=== PATIENT | female | born 1975 | race Caucasian/White ===

== ENCOUNTER 2022-04-09 | Outpatient (CLI) | payer MEDICAID, SELFPAY | END 2022-04-09 23:00 | disposition home or self-care (01) | LOC: RAD 04-22 21:32 | PROVIDERS: Visit Provider Physician Assistant | DX: M25.562 Pain in left knee (principal); M17.11 Unilateral primary osteoarthritis, right knee; M25.561 Pain in right knee | CPT/HCPCS: 73560; 73565; 99203 ==

== ENCOUNTER 2022-05-10 09:01 | Outpatient (CLI) | payer MEDICAID, SELFPAY ==
--- NOTE | 2022-05-10 09:00 | CT_ITS ---
WS: [id number] CT RIGHT knee, noncontrast HISTORY: pre op planning TECHNIQUE: Protocol for [facility] total knee replacement has been obtained. This includes axial imaging th rough the same side RIGHT hip, RIGHT knee and RIGHT ankle. DLP: 951.92 mGy.cm COMPARISON: None available. Very mild narrowing of the hip joint and knee joint. Slightly greater narrowing involving the medial compartment of the knee. No destructive bone lesions. Negative appearance RIGHT ankle. CT/CT knee RT [facility] IMPRESSION: CT imaging provided for [facility] robotic total knee replacement.
== END 2022-05-10 09:02 | disposition home or self-care (01) ==
LOC: RAD 09:06
PROVIDERS: Visit Provider Orthopaedic Surgery
DX: Z01.818 Encounter for other preprocedural examination (principal)
CPT/HCPCS: 73700

== ENCOUNTER 2022-05-20 13:21 | Observation (INO) | payer MEDICAID, SELFPAY ==
--- NOTE | 2022-05-10 10:13 | ANES.PREANE2 ---
Pre-Anesthetic Assessment Height/Weight: Height 1.63 m Weight 136.078 kg Operation Date: 05/20/22 09:55 Proposed Procedures p Juan David Robot Total Knee Arthroplasty 32672,M17.11(Right) - Ashu Gagnon MD Familial anesthetic complications: NOne Social Tobacco and No alcohol Exam alert, oriented x 3, clear to auscultation bilaterally and regular rate & rhythm Airway Mallampati: Class IV Dentition: other (no teeth) Comments: Comments: large neck circumference Pulmonary Asthma CV/HEM None reported None reported Hepatic None reported GI None reported Metabolic Morbid Obesity Musc/skel Osteoarthritis/DJD Neuropsych None reported Anesthetic Plan ASA status: 2 Anesthesia: MAC and Regional (specify below) Other: spinal + adductor block Medications/Allergies Home Medications Medication Instructions Recorded Confirmed Last Taken Type Calcium 600 + D(3) 1 tab PO DAILY 05/10/22 05/10/22 05/09/22 History Elderberry 1 tab PO DAILY 05/10/22 05/10/22 05/10/22 History albuterol sulfate 2.5 mg/3 mL 2.5 mg inhalation DAILY 05/10/22 05/10/22 05/03/22 History (0.083 %) solution for nebulization [id number]-hkts-ggczm-oreg-capryl 1 tab PO DAILY 05/10/22 05/10/22 05/09/22 History Allergies Allergy/AdvReac Type Severity Reaction Status Date / Time codeine Allergy ALGY-Hives Verified 05/10/22 09:51 Penicillins Allergy stomach Verified 04/09/22 09:11 asprin Allergy Intermediate stomach Uncoded 04/09/22 09:11 Data Anesthesia Cardiac Studies: No Data to Display
[2022-05-20] VITALS (18 sets, daily range): BP systolic 124–171; BP diastolic 72–113; PULSE 67–112; RESP 15–19; TEMP 36.1–36.7; O2SAT 91–99
[2022-05-20] MEDS: sodium chloride 0.9% 1,000 ML 30 ML IV (08:13)
[2022-05-20] MEDS: gabapentin 300 mg Capsule PO ×2 (08:14→18:16)
[2022-05-20] MEDS: CELEcoxib 200 mg Capsule 400 MG PO (08:14)
[2022-05-20] MEDS: acetaminophen 500 mg Tablet 1000 MG PO ×2 (08:14→16:19)
[2022-05-20] MEDS: oxyCODONE 20 mg ER (12 HR) Tablet PO (08:15)
--- NOTE | 2022-05-20 09:04 | P.ANESUD_ITS ---
Pre-Anesthetic Update Pre-Anesthetic Assessment: Date of Surgery/Procedure: 05/20/22 Preop Ese gnosis: Osteoarthritis right knee Proposed Procedure: Operation Date: 05/20/22 09:55 Proposed Procedures p Juan David Robot Total Knee Arthroplasty 86219,M17.11(Right) - Ashu Gagnon MD Any changes to Pre-Anesthetic Assessment?: No Last Intake: Intake Last Liquid Date 05/19/22 Last Liquid Time 23:55 Last Solid Date 05/19/22 Last Solid Time 19:00 Vitals: Temperature 97.7 F 05/20/22 07:50 Temperature Source Temporal Artery S can 05/20/22 07:50 Pulse Rate 80 05/20/22 08:20 Respiratory Rate 16 05/20/22 08:20 Blood Pressure 143/77 05/20/22 08:20 Blood Pressure Florence n 99 05/20/22 08:20 Pulse Oximetry 96 05/20/22 08:20 Oxygen Delivery Me thod 05/20/22 08:20 Exam: Pre-Anes Outpt Exam: alert, oriented x 3, clear to auscultation bilaterally and regular rate & rhythm Cardiac Studies: No Data to Display
--- NOTE | 2022-05-20 09:04 | ANES.PROC ---
Anesthesia Procedures Procedure/Date: 05/20/22 Nerve Block ^: Nerve Block 1: Main Anesthesia: spinal anesthesia block Time Out Performed: Yes Consent: requested by attending/covering physician, from patient, from other, risks and benefits reviewed and patient agrees to proceed Anesthesia monitors applied: pulse oximetry, EKG, BP cuff and oxygen Nerve block position: supine Anesthetic Used: ropivicaine 0.5% (30 ml) and with decadron (4 mg) Ultrasound used to: recognize landmarks and visualize and ID femerol nerve Nerve Stimulator Used?: No Interscalene/Femoral BLK: 4 stimuplex 21 g needle used for position and inplane approach, visualize local anesthetic spread and no vascular puncture identified Patient Tolerated Procedure: well Complications: none
--- NOTE | 2022-05-20 09:27 | W.PM.OPSFHP ---
Same Day Surgery H&P Indication for Procedure/HPI DATE OF PROCEDURE: May 20, 2022 CHIEF COMPLAINT/INDICATIONFOR SURGICAL PROCEDURE: Osteoarthritis right knee PREOP DIAGNOSIS: Osteoarthritis right knee PLANNED PROCEDURE: Operation Date: 05/20/22 09:55 Proposed Procedures p Juan David Robot Total Knee Arthroplasty 55224,M17.11(Right) - Ashu Gagnon MD Ms. Singh states that she has had pain to her knee for 5 years now. She states that 5 years ago she dropped a TV on her knee and had immediate pain. She states that she has had 2 knee scopes to her right knee.? The first helped somewhat.? The last with relief for about 3 months. She states that her pain is reproduced by walking and standing. She states that she uses ice and heat with relief. She states that she has tried anti-inflammatory prescribed by her primary care doctor without relief.? She states that she has had 4 injections in the past by Dr. Felix in [place]. She states that her first two injections gave her relief for 2 months and she states the last two injections made her pain worse. She states that she tried physical therapy without relief. She states that her pain will wake her up at night.? She states she is unable to walk a block.? She can barely get to the back of a [employer] and back.? She depends on a scooter and cart to get around through the grocery store.? She has tried to lose weight but it is impossible for her to exercise with her knee and weight loss has been exceedingly difficult. Medications/Allergies* Home Medications Medication Instructions Recorded Confirmed Type Calcium 600 + D(3) 1 tab PO DAILY 05/10/22 05/10/22 History Elderberry 1 tab PO DAILY 05/10/22 05/10/22 History albuterol sulfate 2.5 mg/3 mL 2.5 mg inhalation DAILY 05/10/22 05/10/22 History (0.083 %) solution for nebulization loxoasr-dkms-jwxvh-oreg-capryl 1 tab PO DAILY 05/10/22 05/10/22 History Allergies/Adverse Reactions Allergy/AdvReac Type Severity Reaction Status Date / Time codeine Allergy ALGY-Hives Verified 05/10/22 09:51 Penicillins Allergy ALGY-Anaphy Verified 05/20/22 07:47 laxis asprin Allergy Intermediate stomach Uncoded 04/09/22 09:11 Current Medications: Generic Name Dose Route Start Last Admin Trade Name Ramírez PRN Reason Stop Dose Admin Sodium Chloride 1,000 mls @ 30 mls/hr 05/20/22 07:45 05/20/22 08:13 Sodium Chloride 0.9% IV 05/21/22 07:44 30 mls/hr .Q24H JANUARY Administration Pertinent Exam Findings alert, oriented x 3 and clear to auscultation bilaterally Tender medial joint line No palpable effusion RANGE OF MOTION: ? ? ? EXAMINED LIMB ? Extention: Full ? Flexion: 100 degrees Patella tracks well Cruciate ligaments are stable Recommendations Surgery/Procedure today Coding Level of Care Code Acute Manager Portable for Emely Eli
--- NOTE | 2022-05-20 09:28 | SUR.PREOP ---
09:25 ROM AND RIGHT PEDAL PULSE PRESENT.
[2022-05-20] MEDS: ceFAZolin 2,000 MG in sodium chloride 0.9% (plus) 50 ML 100 MG IV ×2 (10:10→16:19)
[2022-05-20] MEDS: tranexamic acid 1,000 mg/10mL SDV 1000 MG IV (10:30)
[2022-05-20] MEDS: EPINEPHrine 1 mg/mL INJ XX (11:41)
[2022-05-20] MEDS: ketorolac 30 mg/mL INJ XX (11:41)
[2022-05-20] MEDS: tranexamic acid 1,000 mg/10mL SDV 1000 MG XX (11:41)
--- NOTE | 2022-05-20 12:46 | XR_ITS ---
WS: [id number] RIGHT KNEE 2 VIEWS AP and cross table lateral imaging is submitted. HISTORY: Right total knee arthroplasty. COMPARISON: 05/10/2022 Total knee replacement prosthetic devices are in good position and alignment. Normal position of the patella. There are normal postoperative changes surrounding the soft tissues consistent with air, blo od and edema. No complications are evident. XR/XR knee RT 1-2V 21754 IMPRESSION: Satisfactory appearance of the recent RIGHT knee arthroplasty.
--- NOTE | 2022-05-20 12:47 | P.OP_ITS ---
Operative Report Date of procedure: May 20, 2022 Pre-op diagnosis: Preop Diagnosis Osteoarthritis right knee Post-op diagnosis: same Post-op diagnosis: Same Post-op findings: Same Procedure done: Right total knee arthroplasty Implants: Jose Triathalon total knee arthroplasty components were used includin) Size 3 triathalon cruciate retaining femoral component 2) Size 4 Tritanium tibial component 3) Size 4/9 mm thickness CS tibial bearing insert Pathology: none sent Surgeon: Ashu Gagnon Brick Setter Operator: Sandor Mckeon Brick Setter Operator: The nurse practitioner the nurse practitioner assisted with critical portions of the case including positioning, draping, exposure, component implantation, closure and dressing application and is present through the entirety of the case. Anesthesia: Nerve Block (Spinal, adductor canal block) Estimated blood loss (mL): 250 Findings: The patient eburnated bone over the medial femoral condyle and medial tibial plateau with varus malalignment there was minimal patellar intra-articular chondromalacia Condition: stable Disposition: PACU Procedure: The patient was taken to the operating room. Patient was given 1 g of tranexamic acid and 2 g of Ancef. The above anesthesia provided by the anesthesia service. A timeout was performed. The patient was prepped and draped in the usual fashion with the lower extremity exposed. A anterior incision was made, midline, from a point proximal to the patella to the distal tibial tubercle. The knee was entered through a medial parapatellar approach. The patella could be displaced laterally and the knee flexed. The patellar fat pad was resected to provide better visibility. Retractors were placed medially and laterally adjacent to the tibial plateau. At a point approximately 8 cm above the patella, 2 small incisions were made with a scalpel blade and 2 long threaded pins were placed into the anterior medial femur engaging both cortices. The femoral arrays were placed over these pins and secured. At a point 8 cm distal to the tibial tubercle. 2 shorter bicortical threaded pins were placed across the anterior medial tibia and the tibial arrays placed. A checkpoint was made just proximal and medial to the medial femoral condyle and just medial to the tibial plateau. All osteophytes were removed from the medial femoral condyle medial tibial plateau. small osteotomes were placed in the joint in both flexion and extension to determine ligamentous laxity. The tibia was cut into degrees additional varus to balance the knee.. The HALINA robot was then introduced to the field and the femur and tibia cut in accordance with our plan. he [employer] Fastseal was then used to provide hemostasis, particularly about the posterior capsule. A trial with the above components provided excellent stability and full range of motion. The femur was then prepared for the femoral pegs of the component in the tibia for the tibial component. The femur and tibia were then press-fit into place. An osteotome was used to remove the lateral 8 mm of the patella to minimize chances of later impingement. A neurectomy was accomplished circumferentially about the patella with electrocautery and lateral osteophytes removed. Surfaces were cleaned with a gentamicin solution. The femur and tibia were then press-fit into place. The posterior capsule and collateral ligaments were then injected with a solution of 100 mL of 0.2% ropivacaine, 1 mL of a 1:1000 epinephrine solution, 30 mg of Toradol, and 1 g of tranexamic acid. Final polyethylene component was then snapped into place into the tibia. The extensor retinaculum was closed with a running 1 Stratafix interrupted 1 Ethibond. The subcutaneous tissues were closed with 2-0 Vicryl and the skin was closed with a running 4-0 Stratafix. The wound was covered with a Dermabond Prineo dressing. It was covered with 4xrs and a compressive Tubigauze was applied. The patient was taken to recovery room in stable condition.
[2022-05-20] MEDS: oxyCODONE 5 mg IR Tab/Cap PO ×2 (13:55→19:30)
[2022-05-20] MEDS: metoclopramide 5 mg/mL SDV 2 mL 10 MG IV (14:03)
--- NOTE | 2022-05-20 15:03 | ANE.PACU2 ---
Inpatient post-anesthesia follow up: Airway intact: Yes Vital signs: Temperature 98.0 F Pulse Rate 112 Respiratory Rate 18 Blood Pressure 155/90 Pulse Oximetry 91 Oxygen Delivery Me thod Room Air Oxygen Flow Rate 6 Fraction of Inspir ed Oxygen Hydration adequate: Yes Nausea and vomiting: No Pain level: 1 Mental status: Baseline
[2022-05-20] MEDS: CELEcoxib 200 mg Capsule PO (20:31)
[2022-05-21] MEDS: ceFAZolin 2,000 MG in sodium chloride 0.9% (plus) 50 ML 100 MG IV (00:49)
[2022-05-21] MEDS: sodium chloride 0.9% 1,000 ML 100 ML IV (00:50)
[2022-05-21] MEDS: acetaminophen 500 mg Tablet 1000 MG PO ×2 (00:50→08:58)
[2022-05-21 01:03] VITALS: BP 142/70; PULSE 73; RESP 18; TEMP 36.7; O2SAT 96
--- NOTE | 2022-05-21 04:07 | PC.NURSE ---
Patient called this nurse into the room and said that she wants to go outside to smoke that she has been a good girl this whole time and has not asked once but I need to go outside and smoke. I told her that she had a fresh surgery from yesterday and that she still has an IV in her arm as she is getting antibiotics and that she would not be able to go outside and smoke as that is against her orders and hospital policy. She said that I just needed to turn my head and pretend I did not know what she was doing. I will just say I am going for a walk. I told her I could not do that. I offered to call the doctor for a patch or for nicotine gum anything we could do to help and she said No I do not want that I smoke one pack a day my smokes and I am not going to be stopping. Adele sheehan was called to come talk to the patient as charge nurse Julita was in another room and also educated the patient on the importance of following doctors orders after surgery and on different measures we could take to help like a nicotine patch. Patient was able to be calmed down and agreed to get back in bed but stated she just wants her antibiotics so she can leave and go home.
[2022-05-21 04:14] VITALS: RESP 18; O2SAT 97
[2022-05-21] MEDS: oxyCODONE 5 mg IR Tab/Cap PO ×2 (04:14→08:57)
[2022-05-21 04:16] VITALS: BP 133/69; PULSE 83; RESP 18; TEMP 36.8; O2SAT 97
[2022-05-21 04:20] LABS: Hemoglobin 13.6 g/dL (11.5-15.3)
--- NOTE | 2022-05-21 08:04 | PM.DCS ---
Discharge Providers Date of Admission: 05/20/22 13:21 Date of Discharge: May 21, 2022 Attending Provider at Admission: Ashu Henderson MD Attending Provider at Discharge: Ashu Henderson MD Primary Care Provider: Elda Casarez Diagnoses at Discharge Discharge Diagnosis (1) Obesity: Status: Acute (2) Osteoarthritis of right knee: Status: Resolved (3) Status post right knee replacement: Status: Acute Reason for Visit Reason for Visit: M17.11 UNilateral Primary Osteoarthritis, right kn Hospital Course Hospital Course The patient tolerated surgery well. They remained hemodynamically stable. They was begun on aspirin and [] for DVT prophylaxis. The patient was mobilized with therapy beginning the day of surgery and by the first postoperative day independent with the walker. As the pain was adequately controlled and they were fully mobile they were discharged home. Physical Exam Narrative: On the day of discharge the knee incision was clean. They had no drainage. There is minimal swelling in the thigh and knee and the calf. No distal neurovascular deficits were noted Discharge Data Studies Completed and Pending Completed Studies During Hospitalization Category Date Time Status XR knee RT 1-2V 79112 Routine Exams 05/20/22 12:46 Completed Radiology Impressions Knee X-Ray 05/20/22 12:46 IMPRESSION: Satisfactory appearance of the recent RIGHT knee arthroplasty. Laboratory Results Hgb 13.6 g/dL (11.5-15.3) 05/21/22 04:15 Vitals Last Vital Signs Temp 98.2 F 05/21/22 04:16 Pulse 83 05/21/22 04:16 Resp 18 05/21/22 04:16 BP 133/69 05/21/22 04:16 Pulse Ox 97 05/21/22 04:16 O2 Del Method 05/21/22 04:16 O2 Flow Rate 6 05/20/22 13:10 Discharge Plan Discharge Patient Disposition: Home Condition: Stable Prescriptions: New oxycodone 5 mg Tablet 5 mg PO Q4H PRN (Reason: Moderate Pain) 7 Days Qty: 40 0RF celecoxib 200 mg Capsule 200 mg PO Q12H 14 Days Qty: 28 0RF gabapentin 300 mg Capsule 300 mg PO BID 7 Days Qty: 14 0RF aspirin 325 mg Tablet,Delayed Release (Dr/Ec) 325 mg PO DAILY 30 Days Qty: 3 0RF Continued albuterol sulfate 2.5 mg /3 mL (0.083 %) solution for nebulization 2.5 mg inhalation DAILY Calcium 600 + D(3) 1 tab PO DAILY Elderberry 1 tab PO DAILY sntznlw-ksam-aodha-oreg-capryl 1 tab PO DAILY Discharge Orders: Discharge Order (Routine); Ordered 05/21/22 Ordered By: Ashu Henderson Referrals: Sandor Mckeon FNP [Physician Children'S Service Supervisor] - 05/24/22 10:30 am Discharge Diet: Advance as tolerated Discharge Activity: Limit activity as instructed Patient Instructions: Opioid Safety Activity Restrictions/Additional Instructions: Okay to shower Keep Tubigauze sleeve in place for swelling. Okay to remove for hygiene. Apply FirstIce up to 20 min/hr for pain and swelling Take Celebrex twice a day for the next 15 days for pain , discontinue other anti-inflammatories Take Neurontin twice a day for 7 days. Take Tylenol 500mg (2 tabs) as needed 3 times a day for mild pain take oxycodone for breakthrough pain. Exercises per physical therapy. May weight-bear as tolerated on total knee arthroplasty IF HAVE ANY PROBLEMS OR QUESTIONS CALL HOSPITAL SUSTAINABILITY COORDINATOR AT AND ASK TO HAVE DR. HENDERSON PAGED. Discharge Attestations Time Spent in Discharge Care*: other Quality Metrics Clinical Quality Measures [ No reported AMI, CVA or VTE this stay] Coding Level of Care Code Acute [facility] note Diagnoses Obesity E66.9 Osteoarthritis of right knee M17.11 Status post right knee replacement Z96.651
[2022-05-21 08:57] VITALS: RESP 18
[2022-05-21] MEDS: gabapentin 300 mg Capsule PO (08:59)
[2022-05-21] MEDS: CELEcoxib 200 mg Capsule PO (08:59)
[2022-05-21 12:45] VITALS: BP 119/53; PULSE 82; RESP 18; TEMP 36.9; O2SAT 96
== END 2022-05-21 12:45 | disposition home or self-care (01) ==
LOC: OBGYN 17:30
PROVIDERS: Admitting Provider Orthopaedic Surgery; PCP Physician Assistant; Visit Provider Orthopaedic Surgery
PROC: 8E0Y0CZ Robotic Assisted Procedure of Lower Extremity, Open Approach (ICD-10-PCS; CPT 27447; principal; 2022-05-20 09:35)
DX: M17.11 Unilateral primary osteoarthritis, right knee (principal); E66.01 Morbid (severe) obesity due to excess calories; Z68.43 Body mass index [BMI] 50.0-59.9, adult
CPT/HCPCS: 27447; 36415; 73560; 85018; 97110; 97116; 97161; 97165; C1776; G0378; J0171; J0690; J1100; J1580; J1885; J2001; J2250; J2270; J2405; J2704; J2765; J2795; J3010; J3490; J7030

== ENCOUNTER → 2022-07-03 10:37 | Outpatient (BNVA) | payer MEDICAID, SELFPAY | PROVIDERS: PCP Physician Assistant; Visit Provider Nurse Practitioner Family | DX: Z96.651 Presence of right artificial knee joint (principal); M54.9 Dorsalgia, unspecified; M54.30 Sciatica, unspecified side | CPT/HCPCS: 73560; 73565; 99213 ==

== ENCOUNTER → 2022-09-04 10:35 | Outpatient (BNVA) | payer MEDICAID, SELFPAY | PROVIDERS: PCP Physician Assistant; Visit Provider Nurse Practitioner Family | DX: M17.11 Unilateral primary osteoarthritis, right knee (principal); Z96.651 Presence of right artificial knee joint; Z47.89 Encounter for other orthopedic aftercare | CPT/HCPCS: 73560; 73565; 99213 ==

== ENCOUNTER → 2022-10-02 14:21 | Outpatient (BNVA) | payer MEDICAID, SELFPAY | PROVIDERS: PCP Physician Assistant; Visit Provider Nurse Practitioner Family | DX: Z96.651 Presence of right artificial knee joint (principal) | CPT/HCPCS: 73560; 73565; 99213 ==

== ENCOUNTER 2023-08-28 11:15 | Emergency (ER) | payer MEDICAID, SELFPAY ==
[2023-08-28 11:24] VITALS: BP 154/69; PULSE 88; RESP 18; TEMP 36.7; O2SAT 97; BMI 48.4
[2023-08-28 12:16] LABS: Basophils % 0.4 %; Eosinophils # 0.1 10^3/uL (0.0-0.8); Eosinophils % 1.1 %; Hematocrit 49.6 % (36-47); Lymphocytes # 2.6 10^3/uL (0.8-4.8); Lymphocytes % 24.5 %; Mean Corpuscular HGB Conc 32.5 g/dL (30-55); Mean Corpuscular Hemoglobin 30.9 pg (27-33); Mean Corpuscular Volume 95.2 fl (85-98); Monocytes # 0.7 10^3/uL (0.2-0.9); Monocytes % 6.2 %; Neutrophils # 7.05 10^3/uL (1.8-7.7); Neutrophils % 67.2 %; Nucleated Red Blood Cells % 0 %; Platelet Count 221 10^3/cmm (157-399); Red Blood Count 5.21 10^6/uL (3.85-5.65); Red Cell Distribution Width 12.1 % (12.1-15.1); White Blood Count 10.47 10^3/uL (3.29-11.43)
[2023-08-28 12:40] LABS: Alanine Aminotransferase 35 U/L (0-33); Albumin Level 4.1 g/dL (3.5-5.2); Alkaline Phosphatase 120 U/L (35-105); Anion Gap 18.1 (5-19); Aspartate Amino Transferase 36 U/L (0-32); Blood Urea Nitrogen 6 mg/dL (6-20); Carbon Dioxide 23 mmol/L (22-29); Chloride 104 mmol/L (98-107); Creatinine Clr Calc Pharmacy 180.4515; Globulin 3.3 g/dL (1.3-4.6); Glomerular Filtration Rate 131.1 mL/min (90-130); Glucose 92 mg/dL (65-115); Osmolality Calculated 289 mOsm/kg (285-295); Potassium 4.1 mmol/L (3.5-5.1); Sodium 141 mmol/L (136-145); Total Bilirubin 0.4 mg/dL (0.15-1.2); Total Protein 7.4 g/dL (6.6-8.7)
--- NOTE | 2023-08-28 13:19 | W.ED.RECABL ---
HPI - Recheck/Abnormal Lab/Rx General: Chief Complaint: Recheck/Abnormal Lab/Rx Stated Complaint: abnormal labs sent from dr Barrett Seen by Provider: 08/28/23 13:18 Source: patient Mode of arrival: ambulatory History of Present Illness: 48-year-old female presents emergency room complaining of abnormal labs. She was seen at [facility] in [place] and evidently lab work and 2 days ago. She was advised her lab work is abnormal and she needed to go to the nearest emergency room on arrival here states she generally does not feel good she is initially seen at the clinic because of a gastroenteritis type symptoms. Review of Systems Const: Denies: fever(s) or chills Card: Denies: chest pain Resp: Denies: dyspnea GI: Reports: nausea; Denies: abdominal pain or vomiting : Denies: dysuria, urinary frequency or urinary urgency Musc: Denies: neck pain or back pain Skin/Breast: Denies: rash Physical Exam Const: COMMON NORMALS: no acute distress GENERAL APPEARANCE: cooperative and comfortable ORIENTATION/CONSCIOUSNESS: Yes awake, Yes oriented to person, Yes oriented to place and Yes oriented to time HENMT: COMMON NORMALS: normocephalic, atraumatic and hearing grossly normal bilaterally HEAD & SCALP: normocephalic and atraumatic Resp: COMMON NORMALS: normal respiratory effort, No retractions, No use of accessory muscles and clear to auscultation bilaterally AUSCULTATION: clear to auscultation bilaterally Cardio: COMMON NORMALS: regular rate, regular rhythm and No murmurs present (Cardio) RATE: regular rate RHYTHM: regular rhythm GI: COMMON NORMALS: Soft to palpation and No hepatosplenomegaly present AUSCULTATION: Yes normoactive bowel sounds PALPATION: Yes Soft to palpation, No Tenderness to palpation present (GI), No Guarding due to palpation present (GI) and Yes No hepatosplenomegaly present Extremity: COMMON NORMALS: normal to inspection, capillary refill normal, no clubbing, cyanosis or edema, no calf tenderness and no pedal edema Neuro: SENSORIUM/ORIENTATION: Yes oriented to person, Yes oriented to place and Yes oriented to time Skin: COMMON NORMALS: no rashes or lesions noted GENERAL SKIN EXAM: no rashes or lesions noted Course Vital Signs: Vital signs: Vital Signs Temperature 98.1 F 08/28/23 11:24 Pulse Rate 89 03/07/24 14:14 Respiratory Rate 18 08/28/23 11:24 Blood Pressure 149/90 08/28/23 14:14 Pulse Oximetry 94 08/28/23 14:14 Oxygen Delivery Me thod Room Air 08/28/23 11:24 MDM - Recheck/Abnormal Lab/Rx Medical Decision Making Contacted the office where she was seen in [place] it is [facility] there. Was able to talk to one of the nurses 2 days ago which she was seen initiated white count of 14,000 carbon dioxide was 17 her AST ALT and alk phos were similar to what they are today. Today a repeat CMP and CBC does not show any significant abnormalities. Her white count is in the normal range her vital signs are stable. Patient states she still does not feel real well has a lot of myalgias she has not had any cough. Is not having any diarrhea not having any hematemesis coffee-ground emesis dysuria urgency. She states she does have antiemetics at home (ondansetron). Discharge the patient home is no emergent condition based on her current laboratory studies or her vital signs. She generally is not feeling well I suspect she has focal gastroenteritis or other viral infection because the lab abnormalities and her other symptoms he currently has. She should follow-up with the liver functions with her primary care doctor. Consider getting a tick panel but she says she has not had any tick bites recently and she previously has had a cholecystectomy. Medical Records I reviewed the patient's medical records. Lab Data I reviewed the patient's lab results. 08/28/23 11:50 08/28/23 11:50 Laboratory Results WBC 10.47 10^3/uL (3.29-11.43) 08/28/23 11:50 RBC 5.21 10^6/uL (3.85-5.65) 08/28/23 11:50 Hgb 16.10 g/dL (11.27-16.99) 08/28/23 11:50 Hct 49.6 % (36-47) H 08/28/23 11:50 MCV 95.2 fl (85-98) 08/28/23 11:50 MCH 30.9 pg (27-33) 08/28/23 11:50 MCHC 32.5 g/dL (30-55) 08/28/23 11:50 RDW 12.1 % (12.1-15.1) 08/28/23 11:50 Plt Count 221 10^3/cmm (157-399) 08/28/23 11:50 MPV 11.0 fL (7.4-10.4) H 08/28/23 11:50 Neut % (Auto) 67.2 % 08/28/23 11:50 Lymph % (Auto) 24.5 % 08/28/23 11:50 [place] % (Auto) 6.2 % 08/28/23 11:50 Eos % (Auto) 1.1 % 08/28/23 11:50 Baso % (Auto) 0.4 % 08/28/23 11:50 Neut # (Auto) 7.05 10^3/uL (1.8-7.7) 08/28/23 11:50 Lymph # (Auto) 2.6 10^3/uL (0.8-4.8) 08/28/23 11:50 [place] # (Auto) 0.7 10^3/uL (0.2-0.9) 08/28/23 11:50 Eos # (Auto) 0.1 10^3/uL (0.0-0.8) 08/28/23 11:50 Baso # (Auto) 0.0 10^3/uL (0.0-0.1) 08/28/23 11:50 Nucleated RBC % (auto) 0 % 08/28/23 11:50 Nucleated RBCs # 0.0 /100WBC 08/28/23 11:50 Sodium 141 mmol/L (136-145) 08/28/23 11:50 Potassium 4.1 mmol/L (3.5-5.1) 08/28/23 11:50 Chloride 104 mmol/L (98-107) 08/28/23 11:50 Carbon Dioxide 23 mmol/L (22-29) 08/28/23 11:50 Anion Gap 18.1 (5-19) 08/28/23 11:50 BUN 6 mg/dL (6-20) 08/28/23 11:50 Creatinine 0.5 mg/dL (0.5-0.9) 08/28/23 11:50 GFR Calculation 131.1 mL/min (90-130) H 08/28/23 11:50 Glucose 92 mg/dL (65-115) 08/28/23 11:50 Calculated Osmolality 289 mOsm/kg (285-295) 08/28/23 11:50 Calcium 9.0 mg/dL (8.5-10.5) 08/28/23 11:50 Total Bilirubin 0.4 mg/dL (0.15-1.2) 08/28/23 11:50 AST 36 U/L (0-32) H 08/28/23 11:50 ALT 35 U/L (0-33) H 08/28/23 11:50 Alkaline Phosphatase 120 U/L (35-105) H 08/28/23 11:50 Total Protein 7.4 g/dL (6.6-8.7) 08/28/23 11:50 Albumin 4.1 g/dL (3.5-5.2) 08/28/23 11:50 Globulin 3.3 g/dL (1.3-4.6) 08/28/23 11:50 No radiology studies performed this visit Discharge Plan Discharge Patient Disposition: Home Clinical Impression: Viral syndrome, Transaminitis Condition: Stable Prescriptions: No Action ondansetron 4 mg tablet,disintegrating 4 mg PO Q6H Qty: 14 0RF albuterol sulfate 2.5 mg /3 mL (0.083 %) solution for nebulization 2.5 mg inhalation DAILY Ventolin HFA 90 mcg/actuation Hfa Aerosol Inhaler 1 puff INHALATION QID PRN (Reason: Shortness Of Breath Or Wheezing) Calcium 500 + D (D3) 500 mg-3.125 mcg (125 unit) Tablet 1 tab PO DAILY turmeric 400 mg Capsule 400 mg PO DAILY elderberry fruit 350 mg Capsule 350 mg PO DAILY Daily Multi-Vitamin Tablet 1 tab PO DAILY Discharge Orders: Discharge ED (Routine); Ordered 08/28/23 Ordered By: Ishan Butler Referrals: Elda Casarez PA-C [Primary Care Provider] - Patient Instructions: Opioid Safety, Pain Management Activity Restrictions/Additional Instructions: Thank you for choosing [facility] for your healthcare needs today. Please realize this is an emergency room and that we are providing you with a medical screening exam and this may not be complete and all inclusive of all the testing and or work up that you may need to determine your ailment or severity of your illness. It is very important that you follow up as instructed or that you return to the Emergency Department should you have concerns or if your condition changes or worsens in any way. You are seen today for concerns of previously abnormal labs. Your white count has normalized as is your carbon dioxide. Your liver enzymes including AST ALT and alk phos are slightly elevated. You should follow-up these with your primary care doctor in the office and within the next month. If you have worsening or changing problems be seen sooner. Coding Level of Care Code ED Scraper Loader Operator for Emely Eli
[2023-08-28 14:14] VITALS: BP 149/90; PULSE 89; O2SAT 94
== END 2023-08-28 14:15 | disposition home or self-care (01) ==
PROVIDERS: Emergency Medicine; Emergency Provider Family Medicine; PCP Physician Assistant
DX: B34.9 Viral infection, unspecified (principal); R74.01 Elevation of levels of liver transaminase levels
CPT/HCPCS: 36415; 80053; 85025; 99283

== ENCOUNTER 2025-06-22 17:26 | Emergency (ER) | payer MEDICARE, MEDICAID, SELFPAY ==
--- OUTSIDE RECORDS SUMMARY | 2025-06-22 16:00 | XMS_ITS | Encounter Summary ---
Author Organization [facility] Address [address] [place] [address] Care Team Providers Care Steamer Operator Name Role Phone Macarena Rodriguez MD Primary Care Provider [phone]- [phone] Reason for Referral * Radiology Services (Routine) - Authorized Specialty Diagnoses / Procedures Referred By Nora kent Referred To Contact Radiology Diagnoses Screening mammogram, encounter for Procedures MAMMO 3D RADHA SCREEN BILAT W OR WO CAD CHG SCREENING MAMMOGRAPHY BI 2-VIEW BREAST INC CAD CHG SCREENING DIGITAL BREAST TOMOSYNTHESIS BI Josy Ocasio APRN [address] [place] [phone] Phone: tel: fax: [facility]amm[facility] [place] [address] [place] [address] Phone: tel: fax: Referral ID Status Reason Start Date Expiration Date Visits Requested Visits Authorized [id number] Authorized Performing Department to Schedule 07/23/2026 1 1 HEN RUNNER Reason for Visit * Reason Comments Fever Sx started on 06/15; diarrhea, vomiting, shortness of breath, abdominal pain temp up to 104.9; last fever this morning was 101 Encounter Details Date Type Department Care Team (Late Contact Info) Description 06/22/2025 4:00 PM KITCHEN RUNNER Office Visit [facility] [place] [address] [place] [phone] Josy Ocasio APRN [address] [place] [phone] Abdominal pain, acute, right lower quadrant (Primary Dx); Nausea and vomiting, unspecified vomiting type; Fever, unspecified fever cause; Acute diarrhea; Influenza vaccination declined; Screening mammogram, encounter for Social History Tobacco Use Types Packs/Day Years Used Date Smoking Tobacco: Every Day Cigarettes Alcohol Use Standard Drinks/Week Comments Not Currently 0 (1 standard drink = 0.6 oz pur e alcohol) Feeling Safe Answer Date Recorded Are you in a relationship wi th someone who hurts you emotionally and/or physically? No 01/05/2025 Comments No Sex and Gender Information Value Date Recorded Sex Assigned at Not on file Legal Sex Female 9:14 PM KITCHEN RUNNER Gender Identity Not on file Sexual Orientation Not on file documented as of this encounter Last Filed Vital Signs Vital Sign Reading Time Taken Comments Blood Pressure 143/94 06/22/2025 3:21 PM KITCHEN RUNNER Pulse 94 06/22/2025 3:21 PM KITCHEN RUNNER Temperature 36.6 C (97.9 F) 06/22/2025 3:21 PM KITCHEN RUNNER Respiratory Rate - - Oxygen Saturation 96% 06/22/2025 3:21 PM KITCHEN RUNNER Inhaled Oxygen Concentration - - Weight 129.1 kg (284 lb 9.6 oz) 06/22/2025 3:21 PM KITCHEN RUNNER Height 162.6 cm (5' 4 ) 06/22/2025 3:21 PM KITCHEN RUNNER Body Mass Index 48.85 06/22/2025 3:21 PM KITCHEN RUNNER documented in this encounter Progress Notes * Josy Ocasio, SHAKA - 06/22/2025 3:24 PM CST HISTORY OF PRESENT ILLNESS Varsha iSngh, a 50 y.o. female presents with a Chief Complaint of Fever (Sx started on 06/15; diarrhea, vomiting, shortness of breath, abdominal pain temp up to 104.9; last fever this morning was 101 ) Subjective The patient presents with Fever (Sx started on 06/15; diarrhea, vomiting, shortness of breath, RLQ abdominal pain, temp up to 104.9; last fever this morning was 101). She feels like the abdominal pain is getting worse and it she can't stand up straight because the pain increases. Nyquil, Mucinex, tylenol and ibuprofen for symptoms. Reports it hasn't helped. States she has been doing gatorade and water for fluid intake, but doesn't not want to eat. The history is provided by the patient. 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 HENT: Negative. Respiratory: Negative. Cardiovascular: Negative. Gastrointestinal: Positive for abdominal pain (RLQ), diarrhea, nausea and vomiting. Objective PHYSICAL EXAM BP (!) 143/94 Pulse 94 Temp 97.9 ??F (36.6 ??C) (Temporal) Ht 5' 4 (1.626 m) Wt 129.1 kg (284 lb 9.6 oz) SpO2 96% BMI 48.85 kg/m?? Physical Exam Vitals reviewed. Constitutional: General: She is not in acute distress. Appearance: Normal appearance. She is obese. She is ill-appearing. She is not toxic-appearing or diaphoretic. Cardiovascular: Rate and Rhythm: Normal rate and regular rhythm. Pulmonary: Effort: Pulmonary effort is normal. Breath sounds: Normal breath sounds. Abdominal: General: Bowel sounds are normal. Palpations: Abdomen is soft. Tenderness: There is abdominal tenderness (RLQ). There is guarding (RLQ) and rebound (RLQ). There is no right CVA tenderness or left CVA tenderness. Positive signs include Rovsing's sign and McBurney's sign. Skin: General: Skin is warm and dry. Capillary Refill: Capillary refill takes less than 2 seconds. Neurological: Mental Status: She is alert. No results found for any visits on 06/22/25 (from the past 24 hours). Assessment ASSESSMENT and PLAN: ICD-10-CM ICD-9-CM 1. Abdominal pain, acute, right lower quadrant R10.31 789.03 338.19 Patient directed to [facility] ER per her choice to r/o appendicitis. Declined ambulance, spouse driving. Report called to [facility]. 2. Nausea and vomiting, unspecified vomiting type R11.2 787.01 Patient directed to [facility] ER per her choice to r/o appendicitis. Declined ambulance, spouse driving. Report called to [facility]. 3. Fever, unspecified fever cause R50.9 780.60 Patient directed to [facility] ER per her choice to r/o appendicitis. Declined ambulance, spouse driving. Report called to [facility]. 4. Acute diarrhea R19.7 787.91 Patient directed to [facility] ER per her choice to r/o appendicitis. Declined ambulance, spouse driving. Report called to [facility]. 5. Influenza vaccination declined Z28.21 V64.06 6. Screening mammogram, encounter for Z12.31 V76.12 MAMMO 3D RADHA SCREEN BILAT W OR WO CAD Josy Ocasio APRN Outpatient Medications Marked as Taking for the 06/22/25 encounter (Office Visit) with Josy Ocasio APRN Medication Sig Dispense Refill simethicone 125 mg Tablet, Chewable Chew one tablet after drinking first 1/2 of prep followed with 8 oz glass of water. Chew two tablets after drinking second 1/2 of prep followed with 8 oz glass of water. 3 Tablet 0 multivitamins with minerals Tablet Take 1 Tablet by mouth daily. saccharomyces boulardii (FLORASTOR) 250 mg Capsule Take by mouth. ASCORBIC ACID, VITAMIN C, ORAL Take by mouth. Airsupra 90-80 mcg/actuation HFA Aerosol Inhaler Take 2 Puffs by mouth every 4 hours as needed. ipratropium-albuteroL (DUONEB) 0.5 mg-3 mg(2.5 mg base)/3 mL Solution for Nebulization Take 3 mL byinhalation. albuterol (PROVENTIL,VENTOLIN) 2.5 mg /3 mL (0.083 %) Solution for Nebulization Take 2.5 mg by inhalation one time only. albuterol sulfate HFA 90 mcg/actuation aerosol inhaler Take 2 Puffs by inhalation every 6 hours as needed for Shortness of Breath. HEN RUNNER documented in this encounter Miscellaneous Notes * Patient Instructions - Josy Ocasio APRN - 06/22/2025 3:47 PM KITCHEN RUNNER Go to the nearest ER of your choice for evaluation for appendicitis. DO NOT EAT OR DRINK UNLESS A DOCTOR TELLS YOU. HEN RUNNER documented in this encounter Plan of Treatment Scheduled Orders Name Type Priority Associated Diagnoses Orde r Schedule MAMMO 3D RADHA SCREEN BILAT W OR WO CAD Imaging Routine Screening mammogram, encounter for 1 Occurrences starting 06/22/2025 until 12/20/2026 documented as of this encounter Visit Diagnoses Diagnosis Abdominal pain, acute, right lower quadrant- Primary Abdominal pain, right lower quadrant Nausea and vomiting, unspecified vomiting type Fever, unspecified fever cause Acute diarrhea Diarrhea Influenza vaccination declined Screening mammogram, encounter for documented in this encounter Care Teams Steamer Operator Relationship Specialty Start Date End Date Macarena Rodriguez MD [address] [place] [phone] PCP - General Family Practice 10/15/24 documented as of this encounter
--- OUTSIDE RECORDS SUMMARY | 2025-06-22 17:33 | XMS_ITS | Patient Health Record ---
Author Organization [facility] Address [address] [place] [address] Support Name Relationship Address Phone STEPHEN BROOKS Guarantor Unknown Allergies Allergen (clinical drug ingredient) Drug/Non Drug Allergy documented on EMR Reaction Allergy Type Onset Date Status aspirin Aspirin , Drug Allergy Active codeine Codeine , Drug Allergy Active Reason For Referral No Information Medications Medication SIG (Take, Route, Frequency, Duration) Notes Start Date End Date Status Albuterol 0.83 MG/ML Inhalant Solution Albuterol 0.83 MG/ML Inhalant Solution 01/07/2018 Active Immunizations Vaccine Route Administration Date Status Comme nts Influenza (whole), CPT 59894 Inactive Unknown 12/30/2017 Administered Social History Social History Additional Details Category Social Info Options Details zzMigrated Social History Migrated Social History Smoking Status:Heavy tobacco smoker (finding) Plan Of Treatment No Information
--- OUTSIDE RECORDS SUMMARY | 2025-06-22 17:33 | XMS_ITS | Encounter Summary ---
Author Organization [facility] Address [address] [place] [address] Care Team Providers Care Demolitionist Name Role Phone Macarena Rodriguez MD Primary Care Provider +1- [phone] Encounter Details Date Type Department Care Team (Late st Contact Info) Description 06/14/2025 External Device Data [facility] ABSTRACTION Provider, Abstract NO ADDRESS ON FILE Social History Tobacco Use Types Packs/Day Years [...] on file Legal Sex Female 9:14 PM DOCTOR OF VETERINARY MEDICINE Gender Identity Not on file Sexual Orientation Not on file documented as of this encounter Plan of Treatment Not on file documented as of this encounter Visit Diagnoses Not on filedocumented in this encounter Care Teams Demolitionist Relationship Specialty Start Date End Date Macarena Rodriguez MD [address] [place] [phone] PCP - General Family Practice 10/15/24 documented as of this encounter
--- OUTSIDE RECORDS SUMMARY | 2025-06-22 17:33 | XMS_ITS | Encounter Summary ---
Author Organization [facility] Address [address] [place] [address] Care Team Providers Care Customer Management Specialist Name Role Phone Macarena Rodriguez MD Primary Care Provider +1- [phone] Encounter Details Date Type Department Care Team (Late st Contact Info) Description 06/21/2025 External Device Data [facility] ABSTRACTION Provider, Abstract [...] on file Legal Sex Female 9:14 PM CLINIC DIRECTOR Gender Identity Not on file Sexual Orientation Not on file documented as of this encounter Plan of Treatment Not on file documented as of this encounter Visit Diagnoses Not on filedocumented in this encounter Care Teams Customer Management Specialist Relationship Specialty Start Date End Date Macarena Rodriguez MD [address] [place] [phone] PCP - General Family Practice 10/15/24 documented as of this encounter
--- OUTSIDE RECORDS SUMMARY | 2025-06-22 17:33 | XMS_ITS | Clinical Summary ---
Author Organization [facility] Address [address] [place] [address] Phone Care Team Providers Care Tempering Machine Operator Name Role Phone Unavailable Primary Care Provider Unavailabl e Social History Tobacco Use Types Packs/Day Years Used Date Smoking Tobacco: Never Assessed Comments Unknown Sex and Gender Information Value Date Recorded Sex Assigned at Not on file Legal Sex Female 10:59 AM CDT Gender Identity Not on file Sexual Orientation Not on file Plan of Treatment Health Maintenance Due Date Last Done Comments DTAP/TDAP/TD VACCINES (1 - Tdap) 1993 HEPATITIS B VACCINES (1 of 3 - 19+ 3-dose series) 03/24 HPV/Cotest (21-29) 1995 CERVICAL CANCER SCREENING 2004 HPV/Cotest (30-65) 2004 PAP SMEAR 2004 BREAST CANCER SCREENING 2014 COLORECTAL SCREENING 2019 Colorectal Cancer Screening 2019 FIT-DNA Q 3 years 2019 FIT/FOBT Q 1 year 2019 Flex Sig/CT Colonography Q 5 years 2019 ZOSTER VACCINE (1 of 2) 2024 INFLUENZA VACCINE (#1) 2025
--- OUTSIDE RECORDS SUMMARY | 2025-06-22 17:33 | XMS_ITS | Clinical Summary ---
Author Organization [employer] Address [address] [facility] Attn: Epic Prelude ADT [place] [address] Care Team Providers Care Production Checker Name Role Phone Macarena Rodriguez MD Primary Care Provider +1- [phone] Allergies Active Allergy Reactions Criticality Noted Date Comments Aspirin Unknown 11/26/2023 Codeine Unknown 11/26/2023 Penicillins Unknown 11/26/2023 Medications albuterol (PROVENTIL,PADMA MAYRA) 2.5 mg /3 mL (0.083 %) Solution for Nebulization Take 2.5 mg by inhalation one time only. Active albuterol sulfate HFA 90 mcg/actuation aerosol inhaler Take 2 Puffs by inhalation every 6 hours as needed for Shortness of Breath. Active Airsupra 90-80 mcg/actuation HFA Aerosol Inhaler Take 2 Puffs by mouth every 4 hours as needed. Active ipratropium-albu teroL (DUONEB) 0.5 mg-3 mg(2.5 mg base)/3 mL Solution for Nebulization Take 3 mL by inhalation. Active multivitamins with minerals Tablet Take 1 Tablet by mouth daily. Active saccharomyces boulardii (FLORASTOR) 250 mg Capsule Take by mouth. Acti ve ASCORBIC ACID, VITAMIN C, ORAL Take by mouth. Active pantoprazole (PROTONIX) 40 mg Tablet, Delayed Release (E.C.) Take 1 Tablet (40 mg) by mouth daily. 30 Tablet 1 Active Additional Information Patient not taking.Reported on 06/22/2025 simethicone 125 mg Tablet, Chewable Chew one tablet after drinking first 1/2 of prep followed with 8 oz glass of water. Chew two tablets after drinking second 1/2 of prep followed with 8 oz glass of water. 3 Tablet Active Active Problems Problem Noted Date Diagnosed Date Encounter for screening colonoscopy 10/15/2024 Epigastric abdominal pain 10/15/2024 Total Hysterectomy 10/15/2024 Morbid obesity with body mass index of 40.0-49.9 10/15/2024 Cigarette smoker 10/15/2024 Intercostal neuralgia 11/26/2023 Musculoskeletal chest pain 11/26/2023 Asthma 01/21/2019 Posttraumatic stress disorder 01/21/2019 Heart murmur 01/21/2019 Depressive disorder 01/21/2019 Resolved Problems Problem Noted Date Diagnosed Date Resolved Date Dizziness 11/26/2023 10/15/2024 Encounters Date Type Department Care Team Description 06/22/2025 4:00 PM GREENSMAN Office Visit [facility] [address] [phone] Josy Ocasio APRN Abdominal pain, acute, right lower quadrant (Primary Dx); Nausea and vomiting, unspecified vomiting type; Fever, unspecified fever cause; Acute diarrhea; Influenza vaccination declined; Screening mammogram, encounter for 06/21/2025 External Device Data STL ABSTRACTION Provider, Abstract 06/14/2025 External Device Data ST[facility] ABSTRACTION Provider, Abstract 05/10/2025 External Device Data ST[facility] ABSTRACTION Provider, Abstract 05/10/2025 External Device Data STL ABSTRACTION Provider, Abstract 04/27/2025 External Device Data STL ABSTRACTION Provider, Abstract 04/05/2025 External Device Data STL ABSTRACTION Provider, Abstract 03/28/2025 11:38 AM CDT - 03/28/2025 1:13 PM CDT Hospital Encounter [facility] Endoscopy [address] [place] [address] Angelina Hernandez DO Discharge Disposition: Home or Self Care from Last 3 Months Family History Medical History Relation Name Comments Colon Cancer Neg Hx Social History Tobacco Use Types Packs/Day Years Used Date Smoking Tobacco: Every Day Cigarettes Tobacco Cessation:Ready to Q uit: Not Asked; Counseling Given: Not Answered Alcohol Use Standard Drinks/Week Comments Not Currently 0 (1 standard drink = 0.6 oz pur e alcohol) Feeling Safe Answer Date Recorded Are you in a relationship wi th someone who hurts you emotionally and/or physically? No 01/05/2025 Comments No Sex and Gender Information Value Date Recorded Sex Assigned at Not on file Legal Sex Female 9:14 PM GREENSMAN Gender Identity Not on file Sexual Orientation Not on file Last Filed Vital Signs Vital Sign Reading Time Taken Comments Blood Pressure 143/94 06/22/2025 3:21 PM GREENSMAN Pulse 94 06/22/2025 3:21 PM GREENSMAN Temperature 36.6 C (97.9 F) 06/22/2025 3:21 PM GREENSMAN Respiratory Rate 18 01/06/2025 1:30 AM CDT Oxygen Saturation 96% 06/22/2025 3:21 PM GREENSMAN Inhaled Oxygen Concentration - - Weight 129.1 kg (284 lb 9.6 oz) 06/22/2025 3:21 PM GREENSMAN Height 162.6 cm (5' 4 ) 06/22/2025 3:21 PM GREENSMAN Body Mass Index 48.85 06/22/2025 3:21 PM GREENSMAN Plan of Treatment Health Maintenance Due Date Last Done Comments FIT/ DNA Q 3 YEARS (AUTO ORDER) 1992 FIT/FOBT Q 1 YEAR (AUTO ORDER) 1992 FLEX SIG/CT COLONOGRAPHY Q 5 YEARS (AUTO ORDER) 1991 DTAP/TDAP/TD VACCINES (1 - Tdap) 1993 HEPATITIS B VACCINES (1 of 3 - 19+ 3-dose series) 03/24 BREAST CANCER SCREENING 2014 COLORECTAL CANCER SCREENING (AUTO ORDER) 2019 COLORECTAL SCREENING 2019 Colorectal Cancer Screening (AUTO ORDER) 2019 Colorectal Cancer Screening 2019 FIT-DNA Q 3 years 2019 FIT/FOBT Q 1 year 2019 Flex Sig/CT Colonography Q 5 years 2019 ZOSTER VACCINE (1 of 2) 2024 Medicare Advantage ([place]) Prev entative Visit/Annual Wellness Visit 06/23/2024 INFLUENZA VACCINE (#1) 2025 Pre-Diabetes and Diabetes Screening 10/16/202710/15 Procedures Procedure Name Priority Date/Time Associated Diagnosis Comments HEMOGLOBIN A1C Routine 10/15/2024 1:24 PM CDT Screening for diabetes mellitus from Last 3 Months or Most Recently Relevant to Health Maintenance Results * HEMOGLOBIN A1C (10/15/2024 1:24 PM CDT) HEMOGLOBIN A1C 5.3 <5.7 % [facility] Comment: For the purpose of screening for the presence of diabetes: <5.7% Consistent with the absence of diabetes 5.7-6.4% Consistent with increased risk for diabetes (prediabetes) > or =6.5% Consistent with diabetes This assay result is consistent with a decreased risk of diabetes. Currently, no consensus exists regarding use of hemoglobin A1c for diagnosis of diabetes in children. According to [place] Diabetes Association (ADA) guidelines, hemoglobin A1c <7.0% represents optimal control in non- diabetic patients. Different metrics may apply to specific patient populations. Standards of Medical Care in Diabetes(ADA). ESTIMATED AVERAGE GLUCOSE (MG/DL) 105 mg/dL [facility] ESTIMATED AVERAGE GLUCOSE (MMOL/L) 5.8 mmol/L [facility] Comment: Test Performed at: [email or web address] [address] [place] [address] Janay Yoon MD Blood 10/15/2024 1:24 PM CDT 10/15/2024 1:24 PM CDT us Macarena Rodriguez MD CHEMISTRY ORDERABLES Final Result [facility] [phone] [email or web address] [address] [place] [address] from Last 3 Months or Most Recently Relevant to Health Maintenance Insurance [address] [place] [address] [place] [facility] DUAL COMPLETE HMO [facility] [id number] Care Teams Production Checker Relationship Specialty Start Date End Date Macarena Rodriguez MD [address] [place] [phone] PCP - General Family Practice 10/15/24
[2025-06-22 17:36] VITALS: BP 178/114; PULSE 96; RESP 18; TEMP 36.8; O2SAT 98; BMI 48.5
--- NOTE | 2025-06-22 17:43 | CTR_ITS ---
PROCEDURE INFORMATION: Exam: CT Abdomen And Pelvis With Contrast Exam date and time: 06/22/2025 6:07 PM Age: 50 years old Clinical indication: Abdominal pain; Additional info: Rlq abd pain TECHNIQUE: Imaging protocol: Computed tomography of the abdomen and pelvis with contrast. Radiation optimization: All CT scans at this facility use at least one of these dose optimization techniques: automated exposure control; mA and/or kV adjustment per patient size (includes targeted exams where dose is matched to clinical indication); or iterative reconstruction. Contrast material: [id number]; Contrast volume: 100 ml; Contrast route: INTRAVENOUS (IV); COMPARISON: No relevant prior studies available. RADIATION DOSE METRICS: Total DLP (mGy-cm): 1277.23 FINDINGS: Liver: Normal. No mass. Gallbladder and biliary ducts: Cholecystectomy clips. Pancreas: Normal. No ductal dilation. 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 Adrenal glands: Normal. No mass. Kidneys and ureters: Nonobstructing right renal calculus. Stomach and bowel: Unremarkable. No obstruction. No mucosal thickening. Appendix: No evidence of appendicitis. Intraperitoneal space: Unremarkable. No free air. No significant fluid collection. Vasculature: Aortic atherosclerosis. Lymph nodes: Unremarkable. No enlarged lymph nodes. Urinary bladder: Unremarkable as visualized. Reproductive: Unremarkable as visualized. Bones/joints: Mild degenerative endplate spurring of the lumbar vertebral bodies. Soft tissues: Unremarkable. CT/CT abdomen pelvis w con* [id number] IMPRESSION: Nonobstructing right renal calculus.
[2025-06-22] MEDS: ondansetron 2 mg/ML SDV 2 mL 4 MG IVP (17:54)
[2025-06-22 18:03] VITALS: BP 134/72; PULSE 84; RESP 16; O2SAT 96
[2025-06-22 18:07] LABS: Hematocrit 48.6 % (36-47); Hemoglobin 16.00 g/dL (11.27-16.99); Mean Corpuscular HGB Conc 32.9 g/dL (30-55); Mean Corpuscular Hemoglobin 30.0 pg (27-33); Mean Corpuscular Volume 91.0 fl (85-98); Nucleated Red Blood Cells % 0 %; Platelet Count 187 10^3/cmm (157-399); Red Blood Count 5.34 10^6/uL (3.85-5.65); White Blood Count 7.88 10^3/uL (3.29-11.43)
[2025-06-22] MEDS: iohexol 350 mg/mL 500 mL Btl (per mL) IV (18:10)
--- NOTE | 2025-06-22 18:16 | ED_ITS ---
HPI - Abdominal Pain 2 General: Chief Complaint: Abdominal Pain Stated Complaint: Fever Lower R ABD Pain swelling N/V/D Time Seen by Provider: 06/22/25 17:43 History of Present Illness: Patient is a 50-year-old female presents to the emergency room due to abdominal pain. Context: Patient has had issues with diarrhea, however this is much worse, continuing over the last 10 days, passing gas, and bloating. She has diffuse abdominal pain, however worse in the johnie umbilicus, and right lower quadrant over the last day. She has association nausea, and emesis today. Patient has seen her primary care physician. Associated Symptoms: Reports bloating, diarrhea, nausea and vomiting; Denies chills, coffee ground emesis, constipation, dysuria, fever(s), heartburn and melena Related Data Home Medications ?Medication ?Instructions ?Recorded ?Confirmed albuterol sulfate 2.5 mg/3 mL 2.5 mg inhalation DAILY 05/10/22 08/28/23 (0.083 %) solution for nebulization albuterol sulfate 90 mcg/actuation 1 puff inhalation Q ID PRN 08/28/23 08/28/23 aerosol inhaler (Ventolin HFA) Shortness Of Breath Or Wheezing calcium 500 mg (as 1 tab PO DAILY 08/28/2301/13 carbonate)-vitamin D3 3.125 mcg (125 unit) tablet elderberry fruit 350 mg capsule 350 mg PO DAILY 08/28/23 multivitamin (Daily Multi-Vitamin 1 tab PO DAILY 08/2708/28/23 tablet) turmeric 400 mg capsule 400 mg PO DAILY 08/28/2301/13 Previous Rx's ?Medication ?Instructions ?Recorded ondansetron 4 mg disintegrating 4 mg PO Q6H #14 tabs 1 07/25/21 tablet ondansetron 4 mg disintegrating 4 mg PO Q8H PRN nausea and 06/22/25 tablet vomiting 4 days #14 tabs Allergies Allergy/AdvReac Type Severity Reaction Status Date / Time aspirin Allergy Unknown Verified 06/22/25 17:41 codeine Allergy ALGY-Hives Verified 06/22/25 17:41 Penicillins Allergy ALGY-Anaphy Verified 06/22/25 17:41 laxis Review of Systems 2 General: Reports: 10 or more systems reviewed and unremarkable except in HPI and below Const: Denies: fever(s) or chills Card: Denies: chest pain or palpitations Resp: Denies: dyspnea or non-productive cough GI: Reports: abdominal pain, nausea, vomiting, diarrhea and bloating; Denies: coffee ground emesis, heartburn, constipation, pain on defecation or melena : Denies: dysuria, urinary frequency or urinary urgency Musc: Denies: neck pain or back pain Skin/Breast: Denies: rash or pruritus Neuro: Denies: headache(s) or numbness in extremities Psych: Reports: other (Frustration); Denies: anxiety or depression Physical Exam 2 Const: COMMON NORMALS: no acute distress GENERAL APPEARANCE: cooperative and comfortable ORIENTATION/CONSCIOUSNESS: Yes awake, Yes oriented to person, Yes oriented to place and Yes oriented to time HENMT: COMMON NORMALS: normocephalic, atraumatic and hearing grossly normal bilaterally HEAD & SCALP: normocephalic and atraumatic Neck/C-Spine: COMMON NORMALS: full ROM, no lymphadenopathy, supple and no meningeal signs CERVICAL SPINE: Yes cervical ROM normal Lymph: LYMPHATIC: no lymphadenopathy noted Chest: COMMONS NORMALS: normal inspection of the chest and normal palpation of entire chest wall Resp: COMMON NORMALS: normal respiratory effort, No retractions, No use of accessory muscles and clear to auscultation bilaterally AUSCULTATION: clear to auscultation bilaterally Cardio: COMMON NORMALS: regular rate, regular rhythm and No murmurs present (Cardio) RATE: regular rate RHYTHM: regular rhythm GI: COMMON NORMALS: Soft to palpation and No hepatosplenomegaly present A USCULTATION: Yes normoactive bowel sounds PALPATION: Yes Soft to palpation, No Tenderness to palpation present (GI), No Guarding due to palpation present (GI) and Yes No hepatosplenomegaly present : COMMON NORMALS: Yes no CVA tenderness BLADDER/KIDNEY EXAM: Yes no CVA tenderness Back/Pelvis: COMMON NORMALS: no CVA tenderness and thoracic and lumbar spine normal to inspection Extremity: COMMON NORMALS: normal to inspection, capillary refill normal, no clubbing, cyanosis or edema, no calf tenderness and no pedal edema Neuro: SENSORIUM/ORIENTATION: Yes oriented to person, Yes oriented to place and Yes oriented to time MENINGEAL SIGNS: Yes no meningeal signs Skin: COMMON NORMALS: no rashes or lesions noted GENERAL SKIN EXAM: no rashes or lesions noted Course 2 Reevaluation(s): Reevaluation #1: No further nausea, vomiting, or diarrhea after IV fluids and Zofran Vital Signs: Vital signs: Vital Signs Temperature 98.3 F 06/22/25 17:36 Pulse Rate 84 06/22/25 18:03 Respiratory Rate 16 06/22/25 18:03 Blood Pressure 146/88 06/22/25 18:47 Pulse Oximetry 96 06/22/25 18:47 Oxygen Delivery Me thod Room Air 06/22/25 18:47 MDM - Abdominal Pain Medical Decision Making Patient is a 50-year-old female presents to the ED with nausea, vomiting, diarrhea, ongoing with waxing and waning symptoms for the last 10 days, and recently increased bloating the last 1 day. She states that her abdominal pain was prevalent today, and started more today, periumbilicus, and right lower quadrant. CT is negative for acute appendicitis or colitis. Suspect a gastroenteritis. She did not have any stools during her ER visit. Will give her Zofran for control of her nausea, since that helped here, and IV fluids, placed on a clear liquid diet, and send Zofran to the pharmacy. All of her questions answered to her satisfaction. I did also advise her to follow-up with her primary care, and be referred to GI specialist given her both bloating, and what appears like hepatomegaly on CT to me, although it is read as normal at this time. I did also consider tickborne as a differential, however since this has been ongoing, no tick bite history, and patient has symptoms of nausea, vomiting, I would hold off on a medication that could cause worsening symptoms. As well she does not have leukocytopenia, or thrombocytopenia. Medical Records I reviewed the patient's medical records. Lab Data I reviewed the patient's lab results. 06/22/25 16:56 06/22/25 16:56 Labs/Radiology: Radiology Impressions Abdomen/Pelvis CT 06/22/25 17:43 IMPRESSION: Nonobstructing right renal calculus. Laboratory Results WBC 7.88 10^3/uL (3.29-11.43) 06/22/25 16:56 RBC 5.34 10^6/uL (3.85-5.65) 06/22/25 16:56 Hgb 16.00 g/dL (11.27-16.99) 06/22/25 16:56 Hct 48.6 % (36-47) H 06/22/25 16:56 MCV 91.0 fl (85-98) 06/22/25 16:56 MCH 30.0 pg (27-33) 06/22/25 16:56 MCHC 32.9 g/dL (30-55) 06/22/25 16:56 RDW 11.9 % (12.1-15.1) L 06/22/25 16:56 Plt Count 187 10^3/cmm (157-399) 06/22/25 16:56 MPV 11.2 fL (7.4-10.4) H 06/22/25 16:56 Neut % (Auto) 57.5 % 06/22/25 16:56 Lymph % (Auto) 34.0 % 06/22/25 16:56 [place] % (Auto) 6.3 % 06/22/25 16:56 Eos % (Auto) 1.3 % 06/22/25 16:56 Baso % (Auto) 0.5 % 06/22/25 16:56 Neut # (Auto) 4.53 10^3/uL (1.8-7.7) 06/22/25 16:56 Lymph # (Auto) 2.7 10^3/uL (0.8-4.8) 06/22/25 16:56 [place] # (Auto) 0.5 10^3/uL (0.2-0.9) 06/22/25 16:56 Eos # (Auto) 0.1 10^3/uL (0.0-0.8) 06/22/25 16:56 Baso # (Auto) 0.0 10^3/uL (0.0-0.1) 06/22/25 16:56 Nucleated RBC % (auto) 0 % 06/22/25 16:56 Nucleated RBCs # 0.0 /100WBC 06/22/25 16:56 Sodium 141 mmol/L (136-145) 06/22/25 16:56 Potassium 4.0 mmol/L (3.5-5.1) 06/22/25 16:56 Chloride 104 mmol/L (98-107) 06/22/25 16:56 Carbon Dioxide 23 mmol/L (22-29) 06/22/25 16:56 Anion Gap 18.0 (5-19) 06/22/25 16:56 BUN 7 mg/dL (6-20) 06/22/25 16:56 Creatinine 0.6 mg/dL (0.5-0.9) 06/22/25 16:56 GFR Calculation 105.4 mL/min (90-130) 06/22/25 16:56 Glucose 139 mg/dL (65-115) H 06/22/25 16:56 Calculated Osmolality 292 mOsm/kg (285-295) 06/22/25 16:56 Lactic Acid 1.9 mmol/L (0.5-2.2) 06/22/25 16:56 Calcium 9.2 mg/dL (8.5-10.5) 06/22/25 16:56 Total Bilirubin 0.5 mg/dL (0.15-1.2) 06/22/25 16:56 AST 49 U/L (0-32) H 06/22/25 16:56 ALT 51 U/L (0-33) H 06/22/25 16:56 Alkaline Phosphatase 112 U/L (35-105) H 06/22/25 16:56 Total Protein 7.4 g/dL (6.6-8.7) 06/22/25 16:56 Albumin 4.5 g/dL (3.5-5.2) 06/22/25 16:56 Globulin 2.9 g/dL (1.3-4.6) 06/22/25 16:56 Lipase 52 U/L (13-60) 06/22/25 16:56 Urine Color Yellow (Yellow) 06/22/25 16:56 Urine Appearance Clear (CLEAR) 06/22/25 16:56 Urine pH 5.5 (5-7) 06/22/25 16:56 Ur Specific [place] 1.004 (1.005-1.030) L 06/22/25 16:56 Urine Protein Negative (Negative) 06/22/25 16:56 Urine Glucose (UA) Negative (Normal) 06/22/25 16:56 Urine Ketones Negative (Negative) 06/22/25 16:56 Urine Blood Negative (Negative) 06/22/25 16:56 Urine Nitrate Negative (Negative) 06/22/25 16:56 Urine Bilirubin Negative (Negative) 06/22/25 16:56 Urine Urobilinogen 0.2 mg/dL (Negative) 06/22/25 16:56 Ur Leukocyte Esterase Negative (Negative) 06/22/25 16:56 Urine RBC 0-2 /hpf (0-2) 06/22/25 16:56 Urine WBC 0-5 /hpf (0-5) 06/22/25 16:56 Ur Squamous Epith Cells 0-5 /hpf (0-5) 06/22/25 16:56 Amorphous Sediment Not Reportable 06/22/25 16:56 Urine Bacteria None seen /hpf (NONE) 06/22/25 16:56 Hyaline Casts 0.40 /lpf 06/22/25 16:56 All radiology interpretation(s) finalized by discharge Discharge Plan Discharge Patient Disposition: Home Clinical Impression: Gastroenteritis, Transaminitis Condition: Stable Prescriptions: New ondansetron 4 mg tablet,disintegrating 4 mg PO Q8H PRN (Reason: nausea and vomiting) 4 Days Qty: 14 0RF No Action ondansetron 4 mg tablet,disintegrating 4 mg PO Q6H Qty: 14 0RF albuterol sulfate 2.5 mg /3 mL (0.083 %) solution for nebulization 2.5 mg inhalation DAILY Ventolin HFA 90 mcg/actuation Hfa Aerosol Inhaler 1 puff INHALATION QID PRN (Reason: Shortness Of Breath Or Wheezing) Calcium 500 + D (D3) 500 mg-3.125 mcg (125 unit) Tablet 1 tab PO DAILY turmeric 400 mg Capsule 400 mg PO DAILY elderberry fruit 350 mg Capsule 350 mg PO DAILY Daily Multi-Vitamin Tablet 1 tab PO DAILY Discharge Orders: Discharge ED (Routine); Ordered 06/22/25 Ordered By: Mehnaz Pandya Referrals: Macarena Rodriguez MD [Primary Care Provider, Family Practice] Discharge Diet: Clear Liquid Discharge Activity: Resume usual activity Patient Instructions: Clear Liquid Diet (ED), Gastroenteritis (ED), Abdominal Pain (ED), Patient Portal & Marito Instructions Activity Restrictions/Additional Instructions: - At the pharmacy: Zofran/ondansetron. This helps with nausea, and vomiting, and causes constipation. You can take this every 6-8 hours as needed for any of these symptoms. -We discussed you following up with your primary care physician. Call on Friday to make an appointment. We discussed your follow-up, and possibly a referral to a GI specialist. Your liver function test are slightly up, which can go with acute virus, however with the bloating, and what I note is bigger liver, however it is read as normal, I would like you to follow-up with the specialist - We discussed clear liquid diet until all the symptoms resolved. - Return to ED: Fever greater than 100.4 ?F, worsening symptoms: Nausea, vomiting, diarrhea. Thank you for choosing [facility] for your healthcare needs today. You have been screened and evaluated and felt safe for discharge. Health conditions do change or evolve sometimes and as such it is important that you follow up with your Primary Doctor to be re checked, 3-5 days is a general good time frame for follow up. You are always welcome to return to the ED for re assessment if your symptoms are worsening or you have new concerns Print Language: Ukrainian Coding Level of Care Code ED Tension Worker for Emely Eli
[2025-06-22 18:17] LABS: Glucose Urine UA Negative (Normal); Nitrate Urine Negative (Negative); Specific Gravity, Urine 1.004 (1.005-1.030)
[2025-06-22 18:19] LABS: Add Urine Microscopic? YES
[2025-06-22 18:24] LABS: Lactic Sepsis W/Reflex 1.9 mmol/L (0.5-2.2)
[2025-06-22 18:25] LABS: Alanine Aminotransferase 51 U/L (0-33); Albumin Level 4.5 g/dL (3.5-5.2); Alkaline Phosphatase 112 U/L (35-105); Blood Urea Nitrogen 7 mg/dL (6-20); Calcium 9.2 mg/dL (8.5-10.5); Carbon Dioxide 23 mmol/L (22-29); Chloride 104 mmol/L (98-107); Globulin 2.9 g/dL (1.3-4.6); Glucose 139 mg/dL (65-115); Lipase 52 U/L (13-60); Osmolality Calculated 292 mOsm/kg (285-295); Sodium 141 mmol/L (136-145); Total Protein 7.4 g/dL (6.6-8.7)
[2025-06-22 18:30] LABS: Anion Gap 18.0 (5-19); Aspartate Amino Transferase 49 U/L (0-32); Potassium 4.0 mmol/L (3.5-5.1)
[2025-06-22 18:47] VITALS: BP 146/88; O2SAT 96
[2025-06-22 19:38] VITALS: BP 145/96; PULSE 89; RESP 17; TEMP 37; O2SAT 96
== END 2025-06-22 19:40 | disposition home or self-care (01) ==
PROVIDERS: Emergency Provider Physician Assistant; PCP Family Medicine
DX: K52.9 Noninfective gastroenteritis and colitis, unspecified (principal); R74.01 Elevation of levels of liver transaminase levels
CPT/HCPCS: 74177; 80053; 81001; 83605; 83690; 85025; 96374; 99285; J2405; J7030